=== PATIENT | female | born 1960 | race Caucasian/White ===

== ENCOUNTER 2019-12-29 16:45 | Observation (INO) | payer MEDICARE ==
--- NOTE | 2019-12-29 17:10 | ERPHSYRPT ---
- History of Present Illness Time Seen by Provider: 12/29/19 17:00 Historian: patient Exam Limitations: no limitations Patient Subjective Stated Complaint: Pt states "I have chest pain and difficulty breathing since this morning." Triage Nursing Assessment: Pt presented alert and oriented X 3,skin pwd. Pt ambulates with an upright steady gait, able to speak in clear full sentences pt tachypneic. Physician History: 59 years old female with history of tobacco abuse, COPD, diabetes mellitus, hypertension, hyperlipidemia presented in the ER with 1 week history of intermittent chest pain with activity. Patient described this as a dull aching to sharp in nature, substernal with no radiation, moderate intensity with a ctivity and better with resting currently pain is minimal. Patient also report increasing shortness of breath with activity as well. Denies any fever chills. Does have a chronic smoker cough which is not any different than usual. Patient does have history of chest pain in the past and has cardiac cath done couple of times which were negative. The last one was almost 3 years ago. Timing/Duration: week(s) (1) Activities at Onset: activity Quality: cramping Location: substernal Chest Pain Radiation: no radiation Severity of Pain-Max: moderate Severity of Pain-Current: mild Modifying Factors: Improves With: exertion Associated Symptoms: palpitations, shortness of breath, hurts to breathe, No chills, No fever Prior Chest Pain/Cardiac Workup: cardiac cath Nitro Today/Relief: no nitro taken today Aspirin Treatment Today: no aspirin today Allergies/Adverse Reactions: No Known Drug Allergies Allergy (Verified 11/09/14 09:39) Home Medications: Aspirin [Aspir 81] 81 mg PO DAILY 02/17/12 [History] Dexlansoprazole [Dexilant] 60 mg PO Q12H PRN PRN 02/17/12 [History] Metformin HCl 500 mg [Glucophage 500 MG] 850 mg PO BID 02/17/12 [History] Nitroglycerin 0.4 mg Tablet [Nitrostat 0.4 MG] 0.4 mg SL DAILY PRN PRN 02/17/12 [History] Insulin Glargine [Lantus Insulin] 7 units SQ HS 06/04/12 [History] Potassium 0 tab PO DAILY 11/09/14 [History] Pravastatin Sodium 0 mg PO DAILY 11/09/14 [History] Ranolazine [Ranexa] 1,000 mg PO BID 11/09/14 [History] Hx Tetanus, Diphtheria Vaccination/Date Given: No Hx Influenza Vaccination/Date Given: No Hx Pneumococcal Vaccination/Date Given: No Immunizations Up to Date: Yes Travel Risk - International Travel Have you traveled outside of the country in past 3 weeks: No - Coronavirus Screening Are you exhibiting any of the following symptoms?: No Close contact with a COVID-19 positive Pt in past 14-21 Days: No - Review of Systems Constitutional: No Symptoms Eyes: No Symptoms Ears, Nose, & Throat: No Symptoms Respiratory: Dyspnea, Dyspnea on Exertion (GARCIA) Cardiac: Chest Pain Abdominal/Gastrointestinal: No Symptoms Genitourinary Symptoms: No Symptoms Musculoskeletal: No Symptoms Skin: No Symptoms Neurological: No Symptoms Psychological: No Symptoms Endocrine: No Symptoms Hematologic/Lymphatic: No Symptoms Immunological/Allergic: No Symptoms - Past Medical History Pertinent Past Medical History: Yes Neurological History: No Pertinent History ENT History: No Pertinent History Cardiac History: Angina, High Cholesterol, Myocardial Infarction ([place]) Respiratory History: No Pertinent History Endocrine Medical History: Diabetes Type II Musculoskeletal History: Arthritis GI Medical History: GERD History: No Pertinent History Psycho-Social History: No Pertinent History Female Reproductive Disorders: No Pertinent History - Past Surgical History Past Surgical History: Yes Neuro Surgical History: No Pertinent History Cardiac: Cardiac Catheterization Respiratory: No Pertinent History Gastrointestinal: Cholecystectomy Genitourinary: No Pertinent History Musculoskeletal: Joint Replacement Female Surgical History: Section, Tubal Ligation Other Surgical History: r knee joint replacement - Social History Smoking Status: Current every day smoker How long have you smoked: years Exposure to second hand smoke: Yes Drug Use: none Patient Lives Alone: Yes Significant Family History: diabetes - Female History Hx Now: No - Nursing Vital Signs Nursing Vital Signs: Initial Vital Signs Temperature 98.6 F 12/29/19 16:48 Pulse Rate 84 12/29/19 16:48 Respiratory Rate 22 12/29/19 16:48 Blood Pressure 150/89 12/29/19 16:48 O2 Sat by Pulse Oximetry 97 12/29/19 16:48 Pain Scale Pain Intensity 2 - Physical Exam General Appearance: no apparent distress, alert Eye Exam: PERRL/EOMI, eyes nml inspection Ears, Nose, Throat Exam: normal ENT inspection, pharynx normal Neck Exam: normal inspection, supple, full range of motion Respiratory Exam: normal breath sounds, lungs clear Cardiovascular Exam: regular rate/rhythm, normal heart sounds Gastrointestinal/Abdomen Exam: soft, No tenderness Back Exam: normal inspection Extremity Exam: normal inspection, normal range of motion Neurologic Exam: alert, oriented x 3, cooperative Skin Exam: normal color SpO2 Interpretation: normal SpO2: 97 O2 Delivery: Room Air - Course EKG Interpreted by Me: RATE (80), Sinus Rhythm, NORMAL AXIS, Q-wave (Anteroinfer ior leads) Ordered Tests: Active Orders 24 hr Category Date Time Status Plastic Worker STAT Care 12/29/19 17:11 Active EKG-ER Only STAT Care 12/29/19 17:11 Active IV Insertion STAT Care 12/29/19 17:11 Active CHEST 1 VIEW (PORTABLE) Stat Exams 12/29/19 17:11 Taken CBC W DIFF Stat Lab 12/29/19 16:57 Completed CMP Stat Lab 12/29/19 16:57 Completed D-DIMER QUANTITATIVE Stat Lab 12/29/19 16:57 Completed NT PRO BNP Stat Lab 12/29/19 16:57 Completed TROPONIN Q3H Lab 12/29/19 16:57 Completed TROPONIN Q3H Lab 12/29/19 20:15 Ordered TROPONIN Q3H Lab 12/29/19 23:15 Ordered TROPONIN Q3H Lab 12/30/19 02:15 Ordered TROPONIN Q3H Lab 12/30/19 05:15 Ordered Respiratory Therapy Assessment DAILY RT 12/29/19 18:04 Active Transfer Order Routine Transfer 12/29/19 Ordered Medication Summary Discontinued Medications Generic Name Dose Route Start Last Admin Trade Name Freq PRN Reason Stop Dose Admin Albuterol/Ipratropium 3 ml 12/29/19 17:57 12/29/19 18:02 Duoneb 0.5-3 Mg/3 Ml Neb IH 12/29/19 17:58 3 ml STAT ONE Administration Albuterol/Ipratropium Confirm 12/29/19 18:01 Duoneb 0.5-3 Mg/3 Ml Neb Administered 12/29/19 18:02 Dose 3 ml IH .STK-MED ONE Aspirin 324 mg 12/29/19 17:11 12/29/19 17:14 Baby Aspirin 81 Mg Chew PO 12/29/19 17:12 324 mg STAT ONE Administration Aspirin Confirm 12/29/19 17:14 Baby Aspirin 81 Mg Chew Administered 12/29/19 17:15 Dose 324 mg .ROUTE .STK-MED ONE Insulin Human Regular 8 unit 12/29/19 18:35 Humulin R SQ 12/29/19 18:36 STAT ONE Morphine Sulfate 4 mg 12/29/19 17:56 12/29/19 18:02 Morphine Sulfate 4 Mg Inj IV 12/29/19 17:57 4 mg STAT ONE Administration Morphine Sulfate Confirm 12/29/19 18:01 Morphine Sulfate 4 Mg Inj Administered 12/29/19 18:02 Dose 4 mg .ROUTE .STK-MED ONE Nitroglycerin 1 gm 12/29/19 17:56 12/29/19 18:02 Nitro-Bid 2% Ud Packets TOP 12/29/19 17:57 1 gm STAT ONE Administration Nitroglycerin Confirm 12/29/19 18:01 Nitro-Bid 2% Ud Packets Administered 12/29/19 18:02 Dose 1 gm .ROUTE .STK-MED ONE Ondansetron HCl 4 mg 12/29/19 17:56 12/29/19 18:02 Zofran 4 Mg/2 Ml Vial IV 12/29/19 17:57 4 mg STAT ONE Administration Ondansetron HCl Confirm 12/29/19 18:00 Zofran 4 Mg/2 Ml Vial Administered 12/29/19 18:01 Dose 4 mg .ROUTE .STK-MED ONE Lab/Rad Data: Laboratory Result Diagrams 12/29/19 16:57 12/29/19 16:57 Laboratory Results 12/29/19 12/29/19 12/29/19 Range/Units 16:57 16:57 16:57 WBC (4.0-10.5) K/mm3 RBC (4.1-5.4) M/mm3 Hgb (12.0-16.0) gm/dl Hct (35-47) % MCV (78-100) fl MCH (26-32) pg MCHC (32-36) g/dl RDW (11.5-14.0) % Plt Count (150-450) K/mm3 MPV (7.5-11.0) fl Gran % (36.0-66.0) % Eos # (Auto) (0-0.5) Absolute Lymphs (auto) (1.0-4.6) Absolute Monos (auto) (0.0-1.3) Lymphocytes % (24.0-44.0) % Monocytes % (0.0-12.0) % Eosinophils % (0.00-5.0) % Basophils % (0.0-0.4) % Absolute Granulocytes (1.4-6.9) Basophils # (0-0.4) D-Dimer 393 (215-500) ng/mL Sodium 137 (137-145) mmol/L Potassium 4.5 (3.5-5.1) mmol/L Chloride 107 (98-107) mmol/L Carbon Dioxide 21 L (22-30) mmol/L Anion Gap 13.4 (5-15) MEQ/L BUN 18 H (7-17) mg/dL Creatinine 0.71 (0.52-1.04) mg/dL Estimated GFR > 60.0 ML/MIN Glucose 374 H (74-106) mg/dL Calcium 9.2 (8.4-10.2) mg/dL Total Bilirubin 0.40 (0.2-1.3) mg/dL AST 21 (14-36) U/L ALT 21 (0-35) U/L Alkaline Phosphatase 95 (38-126) U/L Troponin I < 0.012 (0.000-0.034) ng/mL NT-Pro-B Natriuret Pep 72.8 (0-900) pg/mL Serum Total Protein 7.4 (6.3-8.2) g/dL Albumin 4.1 (3.5-5.0) g/dL 12/29/19 Range/Units 16:57 WBC 6.6 (4.0-10.5) K/mm3 RBC 4.95 (4.1-5.4) M/mm3 Hgb 14.7 (12.0-16.0) gm/dl Hct 43.9 (35-47) % MCV 88.7 (78-100) fl MCH 29.7 (26-32) pg MCHC 33.5 (32-36) g/dl RDW 13.1 (11.5-14.0) % Plt Count 201 (150-450) K/mm3 MPV 12.1 H (7.5-11.0) fl Gran % 52.5 (36.0-66.0) % Eos # (Auto) 0.20 (0-0.5) Absolute Lymphs (auto) 2.54 (1.0-4.6) Absolute Monos (auto) 0.38 (0.0-1.3) Lymphocytes % 38.5 (24.0-44.0) % Monocytes % 5.8 (0.0-12.0) % Eosinophils % 3.0 (0.00-5.0) % Basophils % 0.2 (0.0-0.4) % Absolute Granulocytes 3.46 (1.4-6.9) Basophils # 0.01 (0-0.4) D-Dimer (215-500) ng/mL Sodium (137-145) mmol/L Potassium (3.5-5.1) mmol/L Chloride (98-107) mmol/L Carbon Dioxide (22-30) mmol/L Anion Gap (5-15) MEQ/L BUN (7-17) mg/dL Creatinine (0.52-1.04) mg/dL Estimated GFR ML/MIN Glucose (74-106) mg/dL Calcium (8.4-10.2) mg/dL Total Bilirubin (0.2-1.3) mg/dL AST (14-36) U/L ALT (0-35) U/L Alkaline Phosphatase (38-126) U/L Troponin I (0.000-0.034) ng/mL NT-Pro-B Natriuret Pep (0-900) pg/mL Serum Total Protein (6.3-8.2) g/dL Albumin (3.5-5.0) g/dL - Progress Progress: improved, re-examined Air Movement: good Progress Note: 12/29/19 18:02 59 years old is evaluated for chest pain with exertion for 1 week. EKG showed normal sinus rhythm with old Q waves in anteroinferior leads but no acute ST elevations. Initial troponins and D-dimers are negative. Chest x-ray did not show any acute cardiopulmonary findings. She is given aspirin and Nitropaste along with morphine and DuoNeb. On reevaluation her symptoms are better. Patient has multiple risk factor with heart score 4. Discussed with Dr. Ramirez and patient is being admitted for observation for rule out. Blood Culture(s) Obtained: No Antibiotics given: No Discussed with : Vee Counseled pt/family regarding: lab results, diagnosis, rad results - Departure Departure Disposition: Observation Clinical Impression: Chest pain, rule out acute myocardial infarction, Hyperglycemia Condition: Stable Critical Care Time: No Referrals: MEKHI OLSEN [Primary Care Provider] -
[2019-12-29] MEDS ORDERED: BABY ASPIRIN 81 MG CHEW PO ONE (17:11)
[2019-12-29] MEDS ORDERED: BABY ASPIRIN 81 MG CHEW ONE (17:14)
[2019-12-29 17:23] LABS: Absolute Neutrophil Ct (ANC) 3.46 (1.4-6.9); BASOPHIL % 0.2 % (0.0-0.4); Basophil (Absolute #) 0.01 (0-0.4); Hematocrit 43.9 % (35-47); Hemoglobin 14.7 gm/dl (12.0-16.0); Lymphocyte (Absolute #) 2.54 (1.0-4.6); Lymphocytes % 38.5 % (24.0-44.0); Mean Cell Volume 88.7 fl (78-100); Mean Corpuscular Hemoglobin 29.7 pg (26-32); Mean Corpuscular Hgb Concent. 33.5 g/dl (32-36); Mean Platelet Volume 12.1 fl (7.5-11.0); Monocyte (Absolute #) 0.38 (0.0-1.3); Monocytes % 5.8 % (0.0-12.0); Neutrophil % 52.5 % (36.0-66.0); Platelet Count 201 K/mm3 (150-450); Red Blood Count 4.95 M/mm3 (4.1-5.4); Red Cell Distribution Width 13.1 % (11.5-14.0); White Blood Count 6.6 K/mm3 (4.0-10.5)
[2019-12-29 17:44] LABS: ALBUMIN 4.1 g/dL (3.5-5.0); ALKALINE PHOSPHATASE 95 U/L (38-126); ANION GAP 13.4 MEQ/L (5-15); BLOOD UREA NITROGEN 18 mg/dL (7-17); CHLORIDE 107 mmol/L (98-107); Calcium 9.2 mg/dL (8.4-10.2); Carbon Dioxide 21 mmol/L (22-30); Creatinine 1 0.71 mg/dL (0.52-1.04); Glucose 374 mg/dL (74-106); NT PRO BNP 72.8 pg/mL (0-900); Potassium 4.5 mmol/L (3.5-5.1); SGOT/AST 21 U/L (14-36); SGPT/ALT 21 U/L (0-35); SODIUM 137 mmol/L (137-145); Total Protein 7.4 g/dL (6.3-8.2)
[2019-12-29] MEDS ORDERED: NITRO-BID 2% UD PACKETS TOP ONE (17:56)
[2019-12-29] MEDS ORDERED: MORPHINE SULFATE 4 MG INJ IV ONE (17:56)
[2019-12-29] MEDS ORDERED: Zofran 4 MG/2 ML VIAL IV ONE (17:56)
[2019-12-29] MEDS ORDERED: DUONEB 0.5-3 MG/3 ml Neb IH ONE ×2 (17:57→18:01)
[2019-12-29] MEDS ORDERED: Zofran 4 MG/2 ML VIAL ONE (18:00)
[2019-12-29] MEDS ORDERED: MORPHINE SULFATE 4 MG INJ ONE (18:01)
[2019-12-29] MEDS ORDERED: NITRO-BID 2% UD PACKETS ONE (18:01)
[2019-12-29] MEDS ORDERED: HUMULIN R SQ ONE (18:35)
[2019-12-29] MEDS ORDERED: HUMULIN R ONE (18:48)
[2019-12-29] MEDS ORDERED: MORPHINE SULFATE 4 MG INJ IV PRN (19:00)
[2019-12-29] MEDS ORDERED: TYLENOL 325 MG PO PRN (19:00)
[2019-12-29] MEDS ORDERED: HUMALOG SQ PRN (19:00)
[2019-12-29] MEDS ORDERED: Zofran 4 MG/2 ML VIAL IV PRN (19:00)
[2019-12-29] MEDS ORDERED: DUONEB 0.5-3 MG/3 ml Neb IH PRN (19:00)
[2019-12-29 19:21] VITALS: BP 137/64; PULSE 70; O2SAT 95
[2019-12-30] MEDS ORDERED: PROTONIX 40 MG IV IV SCH (10:00)
[2019-12-30] MEDS ORDERED: ENOXAPARIN SODIUM SQ SCH (10:00)
--- NOTE | 2019-12-30 10:59 | XRAY ---
Exam: AP upright portable chest film from 12/29/2019. Comparison: AP portable chest film from 03/14/2013. Indication: 59-year-old female with chest pain, smoker, no history of prior lung surgery. Findings: The heart size and contour are normal. The yanira and mediastinal structures appear unremarkable. EKG leads are seen in place. There is average inflation of the lungs. No air space infiltrates, pulmonary vascular congestion, pneumothorax, or pleural fluid is seen. Minimal elevation/eventration of the right hemidiaphragm is seen which I believe is unchanged from 2012. No acute osseous process is noted. Mild osteophyte formation is seen within the lower thoracic spine. Impression: 1. No acute cardiopulmonary disease is seen, no significant change from 03/14/2013.
== END 2019-12-29 21:10 | disposition left against medical advice (07) ==
LOC: ED 16:45 → MED SURG 18:54
PROVIDERS: ADMIT Family Medicine; ATTEND Family Medicine
DX: R07.9 Chest pain, unspecified (principal); E11.9 Type 2 diabetes mellitus without complications; I10 Essential (primary) hypertension; E78.5 Hyperlipidemia, unspecified; J44.9 Chronic obstructive pulmonary disease, unspecified; Z79.899 Other long term (current) drug therapy
CPT/HCPCS: 36000; 36415; 71045; 80053; 83880; 84484; 85025; 85379; 93005; 93041; 93268; 94640; 94760; 96372; 96374; 96375; 99285; G0378; J1815; J2270; J2405; A9270-GY

== ENCOUNTER 2020-03-20 00:55 | Emergency (ER) | payer MEDICARE ==
--- NOTE | 2020-03-20 00:57 | ERPHSYRPT ---
- History of Present Illness Time Seen by Provider: 03/20/20 00:57 Source: patient Exam Limitations: no limitations Physician History: 59-year-old white female with a history of hypertension and insulin-dependent diabetes who smokes approximately three quarters of a pack of cigarettes a day and has smoked for 32 years and presents with relatively sudden onset of shortn ess of breath when lying flat to go to sleep. Patient does not use any nebulizer treatments or inhalers. She is not on any home oxygen therapy. Patient denies chest pain. She has not had a cough, fever, abdominal pain, nausea vomiting or diarrhea. Timing/Duration: today Activities at Onset: sleep Severity of Dyspnea-Max: moderate (When lying flat) Severity of Dyspnea-Current: mild Possible Cause: no prior episodes Modifying Factors: Improves With: lying down, other (Proved with sitting up) Associated Symptoms: No cough, No wheezing, No calf pain, No heaviness, No productive cough Allergies/Adverse Reactions: No Known Drug Allergies Allergy (Verified 03/20/20 01:10) Home Medications: Dexlansoprazole [Dexilant] 60 mg PO Q12H PRN PRN 02/17/12 [History] Metformin HCl 500 mg [Glucophage 500 MG] 1,000 mg PO BID 02/17/12 [History] Nitroglycerin 0.4 mg Tablet [Nitrostat 0.4 MG] 0.4 mg SL DAILY PRN PRN 02/17/12 [History] Potassium 1 tab PO DAILY 11/09/14 [History] Pravastatin Sodium 40 mg PO HS 11/09/14 [History] Ranolazine [Ranexa] 1,000 mg PO BID 11/09/14 [History] Furosemide 40 mg PO DAILY 12/29/19 [History] Aspirin EC 81 mg [Ecotrin 81 mg] 81 mg PO DAILY 03/20/20 [History] Carvedilol 3.125 mg [Coreg 3.125 MG] 3.125 mg PO 03/20/20 [History] Empagliflozin [Jardiance] 10 mg PO DAILY 03/20/20 [History] Gabapentin 300 mg PO TID 03/20/20 [History] Insulin Detemir [Levemir] 70 unit SQ HS 03/20/20 [History] Hx Tetanus, Diphtheria Vaccination/Date Given: No Hx Influenza Vaccination/Date Given: No Hx Pneumococcal Vaccination/Date Given: No Travel Risk - International Travel Have you traveled outside of the country in past 3 weeks: No - Coronavirus Screening Are you exhibiting any of the following symptoms?: No Close contact with a COVID-19 positive Pt in past 14-21 Days: No - Review of Systems Constitutional: No Symptoms Eyes: No Symptoms Ears, Nose, & Throat: No Symptoms Respiratory: Dyspnea Cardiac: No Symptoms Abdominal/Gastrointestinal: No Symptoms Genitourinary Symptoms: No Symptoms Musculoskeletal: No Symptoms Skin: No Symptoms Neurological: No Symptoms Psychological: No Symptoms Endocrine: No Symptoms Hematologic/Lymphatic: No Symptoms Immunological/Allergic: No Symptoms All Other Systems: Reviewed and Negative - Past Medical History Pertinent Past Medical History: Yes Neurological History: No Pertinent History ENT History: No Pertinent History Cardiac History: Angina, High Cholesterol, Myocardial Infarction ([place]) Respiratory History: No Pertinent History Endocrine Medical History: Diabetes Type II Musculoskeletal History: Arthritis GI Medical History: GERD History: No Pertinent History Psycho-Social History: No Pertinent History Female Reproductive Disorders: No Pertinent History - Past Surgical History Past Surgical History: Yes Neuro Surgical History: No Pertinent History Cardiac: Cardiac Catheterization Respiratory: No Pertinent History Gastrointestinal: Cholecystectomy Genitourinary: No Pertinent History Musculoskeletal: Joint Replacement Female Surgical History: Section, Tubal Ligation Other Surgical History: r knee joint replacement - Social History Smoking Status: Current every day smoker How long have you smoked: years Exposure to second hand smoke: Yes Drug Use: none Patient Lives Alone: Yes Significant Family History: diabetes - Nursing Vital Signs Nursing Vital Signs: Initial Vital Signs Temperature 97.5 F 03/20/20 00:56 Pulse Rate 75 03/20/20 00:56 Respiratory Rate 18 03/20/20 00:56 Blood Pressure 157/80 03/20/20 00:56 O2 Sat by Pulse Oximetry 99 03/20/20 00:56 Pain Scale Pain Intensity 0 - Physical Exam General Appearance: no apparent distress, alert, anxiety Eye Exam: PERRL/EOMI, eyes nml inspection Ears, Nose, Throat Exam: hearing grossly normal, normal ENT inspection, normal pharynx Neck Exam: normal inspection, non-tender, supple, full range of motion Respiratory Exam: normal breath sounds, lungs clear, airway intact, No chest tenderness, No respiratory distress Cardiovascular/Chest Exam: normal heart sounds, regular rate/rhythm, murmur Abdominal/Gastrointestinal Exam: soft, normal bowel sounds, No tenderness Rectal Exam: not done Extremity Exam: non-tender, normal range of motion, normal inspection Neurologic Exam: alert, oriented x 3, cooperative, lockstitcher II-XII nml as tested, normal mood/affect, nml cerebellar function, nml station & gait, sensation nml Skin Exam: normal color, warm, dry Lymphatic Exam: No adenopathy SpO2 Interpretation: normal O2 Delivery: Room Air - Course Nursing assessment & vital signs reviewed: Yes EKG Interpreted by Me: RATE (71), Sinus Rhythm, NORMAL AXIS, NORMAL INTERVALS, NORMAL QRS, Other (Comparison EKG is dated 12/29/2019. There are no acute ischemic changes on either EKG.) Ordered Tests: Active Orders 24 hr Category Date Time Status Biomedical Equipment Tech STAT Care 03/20/20 01:16 Active EKG-ER Only STAT Care 03/20/20 01:15 Active IV Insertion STAT Care 03/20/20 01:15 Active Pulse Oximetry (ED) STAT Care 03/20/20 01:15 Active CHEST 1 VIEW (PORTABLE) Stat Exams 03/20/20 01:16 Taken CBC W DIFF Stat Lab 03/20/20 01:25 Completed CMP Stat Lab 03/20/20 01:25 Completed D-DIMER QUANTITATIVE Stat Lab 03/20/20 01:25 Completed Lactic Acid Stat Lab 03/20/20 01:40 Completed NT PRO BNP Stat Lab 03/20/20 01:25 Completed PROTIME WITH INR Stat Lab 03/20/20 01:25 Completed TROPONIN Q3H Lab 03/20/20 01:25 Completed TROPONIN Q3H Lab 03/20/20 04:15 Completed TROPONIN Q3H Lab 03/20/20 07:30 Ordered TROPONIN Q3H Lab 03/20/20 10:30 Ordered TROPONIN Q3H Lab 03/20/20 13:30 Ordered Respiratory Therapy Assessment DAILY RT 03/20/20 03:53 Completed Medication Summary Discontinued Medications Generic Name Dose Route Start Last Admin Trade Name Freq PRN Reason Stop Dose Admin Albuterol/Ipratropium 3 ml 03/20/20 03:45 03/20/20 03:50 Duoneb 0.5-3 Mg/3 Ml Neb IH 03/20/20 03:46 3 ml STAT ONE Administration Albuterol/Ipratropium Confirm 03/20/20 03:48 Duoneb 0.5-3 Mg/3 Ml Neb Administered 03/20/20 03:49 Dose 3 ml IH .STK-MED ONE Methylprednisolone Sodium Succinate 125 mg 03/20/20 01:34 03/20/20 01:50 Solu-Medrol 125 Mg IV 03/20/20 01:35 125 mg STAT ONE Administration Methylprednisolone Sodium Succinate Confirm 03/20/20 01:40 Solu-Medrol 125 Mg Administered 03/20/20 01:41 Dose 125 mg .ROUTE .STK-MED ONE Lab/Rad Data: Laboratory Result Diagrams 03/20/20 01:25 03/20/20 01:25 Laboratory Results 03/20/20 03/20/20 03/20/20 Range/Units 04:15 01:40 01:25 WBC (4.0-10.5) K/mm3 RBC (4.1-5.4) M/mm3 Hgb (12.0-16.0) gm/dl Hct (35-47) % MCV (78-100) fl MCH (26-32) pg MCHC (32-36) g/dl RDW (11.5-14.0) % Plt Count (150-450) K/mm3 MPV (7.5-11.0) fl Gran % (36.0-66.0) % Eos # (Auto) (0-0.5) Absolute Lymphs (auto) (1.0-4.6) Absolute Monos (auto) (0.0-1.3) Lymphocytes % (24.0-44.0) % Monocytes % (0.0-12.0) % Eosinophils % (0.00-5.0) % Basophils % (0.0-0.4) % Absolute Granulocytes (1.4-6.9) Basophils # (0-0.4) PT (9.95-12.35) SECONDS INR (0.8-3.0) D-Dimer (215-500) ng/mL Sodium (137-145) mmol/L Potassium (3.5-5.1) mmol/L Chloride (98-107) mmol/L Carbon Dioxide (22-30) mmol/L Anion Gap (5-15) MEQ/L BUN (7-17) mg/dL Creatinine (0.52-1.04) mg/dL Estimated GFR ML/MIN Glucose (74-106) mg/dL Lactic Acid 2.0 (0.4-2.0) Calcium (8.4-10.2) mg/dL Total Bilirubin (0.2-1.3) mg/dL AST (14-36) U/L ALT (0-35) U/L Alkaline Phosphatase (38-126) U/L Troponin I < 0.012 < 0.012 (0.000-0.034) ng/mL NT-Pro-B Natriuret Pep (0-900) pg/mL Serum Total Protein (6.3-8.2) g/dL Albumin (3.5-5.0) g/dL 03/20/20 03/20/20 03/20/20 Range/Units 01:25 01:25 01:25 WBC 8.1 (4.0-10.5) K/mm3 RBC 4.99 (4.1-5.4) M/mm3 Hgb 15.1 (12.0-16.0) gm/dl Hct 46.4 (35-47) % MCV 93.0 (78-100) fl MCH 30.3 (26-32) pg MCHC 32.5 (32-36) g/dl RDW 13.7 (11.5-14.0) % Plt Count 210 (150-450) K/mm3 MPV 11.9 H (7.5-11.0) fl Gran % 53.4 (36.0-66.0) % Eos # (Auto) 0.24 (0-0.5) Absolute Lymphs (auto) 2.97 (1.0-4.6) Absolute Monos (auto) 0.53 (0.0-1.3) Lymphocytes % 36.8 (24.0-44.0) % Monocytes % 6.6 (0.0-12.0) % Eosinophils % 3.0 (0.00-5.0) % Basophils % 0.2 (0.0-0.4) % Absolute Granulocytes 4.30 (1.4-6.9) Basophils # 0.02 (0-0.4) PT 10.0 (9.95-12.35) SECONDS INR 0.89 (0.8-3.0) D-Dimer 297 (215-500) ng/mL Sodium 139 (137-145) mmol/L Potassium 3.9 (3.5-5.1) mmol/L Chloride 104 (98-107) mmol/L Carbon Dioxide 28 (22-30) mmol/L Anion Gap 1.5 L (5-15) MEQ/L BUN 21 H (7-17) mg/dL Creatinine 0.91 (0.52-1.04) mg/dL Estimated GFR > 60.0 ML/MIN Glucose 278 H (74-106) mg/dL Lactic Acid (0.4-2.0) Calcium 8.9 (8.4-10.2) mg/dL Total Bilirubin 0.30 (0.2-1.3) mg/dL AST 24 (14-36) U/L ALT 22 (0-35) U/L Alkaline Phosphatase 86 (38-126) U/L Troponin I (0.000-0.034) ng/mL NT-Pro-B Natriuret Pep 37.8 (0-900) pg/mL Serum Total Protein 7.3 (6.3-8.2) g/dL Albumin 4.4 (3.5-5.0) g/dL - Progress Progress: improved, re-examined Air Movement: good Progress Note: 03/20/20 01:34 Chest x-ray shows no acute cardiopulmonary disease process. 03/20/20 04:56 Patient denies chest pain. Patient states she is breathing much better than prior to arrival. Blood Culture(s) Obtained: No Antibiotics given: No Counseled pt/family regarding: lab results, diagnosis - Departure Departure Disposition: Home Clinical Impression: Shortness of breath, COPD (chronic obstructive pulmonary disease) Condition: Stable Critical Care Time: No Referrals: MEKHI OLSEN [Primary Care Provider] - Instructions: Chronic Obstructive Pulmonary Disease Additional Instructions: Monitor your blood sugar closely while taking the steroids. Treat your elevated blood sugar as you would without steroid use. Call your primary care doctor on 03/22/2020 for further management and possible referral to a director of accounting. Stop smoking Prescriptions: Prednisone 10 mg [Deltasone 10 mg] 10 mg PO TID #12 tablet
[2020-03-20 01:34] LABS: BASOPHIL % 0.2 % (0.0-0.4); Basophil (Absolute #) 0.02 (0-0.4); Eosinophil (Absolute #) 0.24 (0-0.5); Hematocrit 46.4 % (35-47); Hemoglobin 15.1 gm/dl (12.0-16.0); Lymphocyte (Absolute #) 2.97 (1.0-4.6); Lymphocytes % 36.8 % (24.0-44.0); Mean Corpuscular Hemoglobin 30.3 pg (26-32); Mean Corpuscular Hgb Concent. 32.5 g/dl (32-36); Mean Platelet Volume 11.9 fl (7.5-11.0); Monocyte (Absolute #) 0.53 (0.0-1.3); Monocytes % 6.6 % (0.0-12.0); Neutrophil % 53.4 % (36.0-66.0); Platelet Count 210 K/mm3 (150-450); Red Blood Count 4.99 M/mm3 (4.1-5.4); Red Cell Distribution Width 13.7 % (11.5-14.0); White Blood Count 8.1 K/mm3 (4.0-10.5)
[2020-03-20] MEDS ORDERED: solu-MEDROL 125 MG IV ONE (01:34)
[2020-03-20 01:40] LABS: INR 0.89 (0.8-3.0)
[2020-03-20] MEDS ORDERED: solu-MEDROL 125 MG ONE (01:40)
[2020-03-20 01:56] LABS: BLOOD UREA NITROGEN 21 mg/dL (7-17); Glucose 278 mg/dL (74-106)
[2020-03-20 01:57] LABS: ALBUMIN 4.4 g/dL (3.5-5.0); ALKALINE PHOSPHATASE 86 U/L (38-126); CHLORIDE 104 mmol/L (98-107); Calcium 8.9 mg/dL (8.4-10.2); Carbon Dioxide 28 mmol/L (22-30); Creatinine 1 0.91 mg/dL (0.52-1.04); EST GLOMERULAR FILTRATION RATE > 60.0 ML/MIN; Potassium 3.9 mmol/L (3.5-5.1); SGOT/AST 24 U/L (14-36); SGPT/ALT 22 U/L (0-35); SODIUM 139 mmol/L (137-145); Total Protein 7.3 g/dL (6.3-8.2)
[2020-03-20 01:58] LABS: ANION GAP 1.5 MEQ/L (5-15); NT PRO BNP 37.8 pg/mL (0-900)
[2020-03-20] MEDS ORDERED: DUONEB 0.5-3 MG/3 ml Neb IH ONE ×2 (03:45→03:48)
[2020-03-20 05:07] VITALS: BP 136/85; PULSE 64; O2SAT 97
--- NOTE | 2020-03-20 05:49 | XRAY ---
Indication: Short of breath. Comparison: December 29, 2019. Portable chest again demonstrates normal heart and lungs with incidental focal eventration right hemidiaphragm. Bony thorax intact again with mild degenerative changes. No new/acute findings.
== END 2020-03-20 05:16 | disposition home or self-care (01) ==
LOC: ED 00:55
DX: R06.02 Shortness of breath (principal); J44.1 Chronic obstructive pulmonary disease with (acute) exacerbation; I10 Essential (primary) hypertension; E11.9 Type 2 diabetes mellitus without complications; Z79.4 Long term (current) use of insulin; Z72.0 Tobacco use; Z79.899 Other long term (current) drug therapy; I25.2 Old myocardial infarction
CPT/HCPCS: 36000; 36415; 71045; 80053; 83605; 83880; 84484; 85025; 85379; 85610; 93005; 93041; 94640; 94760; 96374; 99284; G0277; J2930; A9270-GY

== ENCOUNTER 2020-04-30 02:32 | Emergency (ER) | payer MEDICARE ==
--- NOTE | 2020-04-30 03:33 | ERPHSYRPT ---
- History of Present Illness Time Seen by Provider: 04/30/20 02:52 Source: patient Exam Limitations: no limitations Patient Subjective Stated Complaint: pt states after going for a walk today , she had pain in her lt knee. denies fall or any other injury to knee Triage Nursing Assessment: pt alert and oriented, answers questions approp. pt back per wheelchair, ambulates with walker to stretcher with limping gait. skin pink warm and dry. respirations nonlabored with lungs cta. mild swelling and warmth noted to lt knee. pedal pulse and cap refill to lt lower ext wnl. Physician History: This is a 60-year-old diabetic white female who has had bilateral knee replacements in the past and presents with left knee pain. Patient went for her usual walk. After she returned home she noticed pain and swelling in the left knee. There is associated warmth but no redness present. Patient took tramadol but this did not help much. Patient states she did not fall or have any injury during her walk. Patient sees her orthopedic surgeon on 05/11/2020 for a 5-year follow-up. Patient drove herself to the emergency department Method of Injury: unknown Occurred: this afternoon Quality: aching Severity of Pain-Max: moderate Severity of Pain-Current: moderate Lower Extremities Pain: knee: left Modifying Factors: Improves With: movement Associated Symptoms: other (Hurts to bear weight) Allergies/Adverse Reactions: No Known Drug Allergies Allergy (Verified 04/30/20 02:51) Home Medications: Dexlansoprazole [Dexilant] 60 mg PO Q12H PRN PRN 02/17/12 [History] Metformin HCl 500 mg [Glucophage 500 MG] 1,000 mg PO BID 02/17/12 [History] Nitroglycerin 0.4 mg Tablet [Nitrostat 0.4 MG] 0.4 mg SL DAILY PRN PRN 02/17/12 [History] Potassium 1 tab PO DAILY 11/09/14 [History] Pravastatin Sodium 40 mg PO HS 11/09/14 [History] Ranolazine [Ranexa] 1,000 mg PO BID 11/09/14 [History] Furosemide 40 mg PO DAILY 12/29/19 [History] Aspirin EC 81 mg [Ecotrin 81 mg] 81 mg PO DAILY 03/20/20 [History] Carvedilol 3.125 mg [Coreg 3.125 MG] 6.25 mg PO BID 03/20/20 [History] Gabapentin 600 mg PO TID 03/20/20 [History] Insulin Detemir [Levemir] 70 unit SQ HS 03/20/20 [History] Alprazolam [Xanax] 0.5 mg PO TID PRN PRN 04/30/20 [History] Empagliflozin [Jardiance] 10 mg PO DAILY 04/30/20 [History] Tramadol HCl 50 mg [Ultram 50 mg] 50 mg PO Q6-8HPRN PRN 04/30/20 [History] Hx Tetanus, Diphtheria Vaccination/Date Given: No Hx Influenza Vaccination/Date Given: No Hx Pneumococcal Vaccination/Date Given: No Travel Risk - International Travel Have you traveled outside of the country in past 3 weeks: No - Coronavirus Screening Are you exhibiting any of the following symptoms?: No Close contact with a COVID-19 positive Pt in past 14-21 Days: No - Review of Systems Constitutional: No Symptoms Eyes: No Symptoms Ears, Nose, & Throat: No Symptoms Respiratory: No Symptoms Cardiac: No Symptoms Abdominal/Gastrointestinal: No Symptoms Genitourinary Symptoms: No Symptoms Musculoskeletal: Joint Pain (Anterior knee left), Joint Swelling (Anterior knee left) Neurological: No Symptoms Psychological: No Symptoms Endocrine: No Symptoms Hematologic/Lymphatic: No Symptoms Immunological/Allergic: No Symptoms All Other Systems: Reviewed and Negative - Past Medical History Pertinent Past Medical History: Yes Neurological History: No Pertinent History ENT History: No Pertinent History Cardiac History: Angina, High Cholesterol, Myocardial Infarction (SC) Respiratory History: No Pertinent History Endocrine Medical History: Diabetes Type II Musculoskeletal History: Arthritis GI Medical History: GERD History: No Pertinent History Psycho-Social History: No Pertinent History Female Reproductive Disorders: No Pertinent History - Past Surgical History Past Surgical History: Yes Neuro Surgical History: No Pertinent History Cardiac: Cardiac Catheterization Respiratory: No Pertinent History Gastrointestinal: Cholecystectomy Genitourinary: No Pertinent History Musculoskeletal: Joint Replacement, Orthopedic Surgery Female Surgical History: Section, Tubal Ligation Other Surgical History: bilat knee joint replacement, fatty tumors removed x2 - Social History Smoking Status: Current every day smoker How long have you smoked: years Exposure to second hand smoke: Yes Drug Use: none Patient Lives Alone: Yes Significant Family History: diabetes - Nursing Vital Signs Nursing Vital Signs: Initial Vital Signs Temperature 98.2 F 04/30/20 02:39 Pulse Rate 88 04/30/20 02:39 Respiratory Rate 18 04/30/20 02:39 Blood Pressure 127/63 04/30/20 02:39 O2 Sat by Pulse Oximetry 97 04/30/20 02:39 Pain Scale Pain Intensity 9 - Physical Exam General Appearance: no apparent distress, alert, anxiety, obese Eyes, Ears, Nose, Throat Exam: normal ENT inspection, moist mucous membranes Neck Exam: normal inspection, non-tender, supple, full range of motion Cardiovascular/Respiratory Exam: chest non-tender, no respiratory distress Gastrointestinal/Abdominal Exam: non-tender Back Exam: normal inspection, normal range of motion, No CVA tenderness, No vertebral tenderness Hips Exam: bilateral: non-tender, normal inspection, normal range of motion, no evidence of injury Legs Exam: bilateral leg: non-tender, normal inspection, normal range of motion, no evidence of injury Knees Exam: right knee: non-tender, normal inspection, normal range of motion, no evidence of injury, left knee: soft tissue tenderness (Anterior knee), swelling (Anterior knee) Ankle Exam: bilateral ankle: non-tender, normal inspection, normal range of motion, no evidence of injury Foot Exam: bilateral foot: non-tender, normal inspection, normal range of motion, no evidence of injury Neuro/Tendon Exam: normal sensation, normal motor functions, normal tendon functions Mental Status Exam: alert, oriented x 3, cooperative Skin Exam: normal color, warm, dry SpO2 Interpretation: normal SpO2: 97 O2 Delivery: Room Air - Course Nursing assessment & vital signs reviewed: Yes Ordered Tests: Active Orders 24 hr Category Date Time Status KNEE (1 OR 2 VIEW) Stat Exams 04/30/20 03:15 Taken - Progress Progress: pain not gone completely, re-examined Progress Note: 04/30/20 03:34 X-ray left knee shows no acute fracture or dislocation. The replacement hardware is in the appropriate position. Counseled pt/family regarding: diagnosis, need for follow-up, rad results - Departure Departure Disposition: Home Clinical Impression: Left anterior knee pain, Swelling of left knee joint Condition: Stable Critical Care Time: No Referrals: MEKHI OLSEN [Primary Care Provider] - [facility]-Ortho [phone] Additional Instructions: Ice pack to left anterior knee 3-4 times a day. Follow-up with the [facility] orthopedic clinic today between the hours of 8 AM and 10 AM. Wear the Srini bandage for comfort. Take your medication as prescribed. Hold on the tramadol medication until after you complete your Percocet medication. Prescriptions: Oxycodone HCl/Acetaminophen [Percocet 5-325 mg Tablet] 1 each PO Q8H PRN PRN #6 tablet MDD 3 PRN Reason: Pain Prednisone 10 mg [Deltasone 10 mg] 10 mg PO TID #8 tablet
[2020-04-30] MEDS ORDERED: PERCOCET TABLET 5/325MG ONE (03:39)
[2020-04-30] MEDS ORDERED: DELTASONE 20 MG ONE (03:39)
[2020-04-30] MEDS ORDERED: PERCOCET TABLET 5/325MG PO STA (03:41)
[2020-04-30] MEDS ORDERED: DELTASONE 20 MG PO ONE (03:42)
[2020-04-30] MEDS ORDERED: KEFLEX 500 MG PO ONE (03:59)
[2020-04-30] MEDS ORDERED: KEFLEX 500 MG ONE (04:05)
[2020-04-30 04:28] VITALS: BP 125/59; PULSE 87; O2SAT 96
--- NOTE | 2020-04-30 08:58 | XRAY ---
Indication: Pain and edema after walking. Comparison: None AP/crosstable lateral left knee demonstrates total knee arthroplasty with intact articulation/prosthesis and small nonspecific effusion. No other bony, articular, or soft tissue abnormalities.
== END 2020-04-30 04:25 | disposition home or self-care (01) ==
LOC: ED 02:32
DX: M25.562 Pain in left knee (principal); E11.9 Type 2 diabetes mellitus without complications; E78.00 Pure hypercholesterolemia, unspecified; Z96.653 Presence of artificial knee joint, bilateral
CPT/HCPCS: 73560; 99283; A9270-GY

== ENCOUNTER 2022-10-09 10:21 | Day surgery (SDC) | payer MEDICARE ==
--- NOTE | 2022-10-09 09:46 | HP ---
DATE OF SURGERY: 10/09/2022 HISTORY OF PRESENT ILLNESS: The patient is a 62-year-old with some history of thyroid nodules in the past. No signs or symptoms hypothyroidism. She has some dysphagia upper esophagus worse recently. No prior dilatation in the past. It happens mostly with solids, occasionally liquid at times. PAST MEDICAL HISTORY: Dysphagia, reflux, depression, hyperlipidemia, diabetes mellitus type II, neuropathy, obesity, restless leg syndrome, sleep apnea, anxiety. PAST SURGICAL HISTORY: Knee replaced. Cholecystectomy. section. Lipoma. MEDICATIONS: Omeprazole, nitroglycerin, Alprazolam, tramadol, Vascepa, gabapentin, fluconazole, Ranexa, Ozempic, Levemir, pravastatin, Jardiance. ALLERGIES: NKDA. FAMILY HISTORY: Breast cancer, lung cancer, history of stroke. SOCIAL HISTORY: Smoker. No alcohol abuse. REVIEW OF SYSTEMS: Fourteen systems reviewed. No chest pain or palpitations. Other systems negative or noncontributory as above and per preadmission questionnaire. PHYSICAL EXAMINATION: GENERAL: No acute distress. HEENT: Sclerae nonicteric. EOMI. Oral mucous membranes moist. NECK: No JVD. CHEST: Equal excursion, nonlabored breathing. CVS: Regular rate and rhythm. ABDOMEN: Soft. No peritoneal signs. EXTREMITIES: No edema or cyanosis. NEURO: Alert, oriented, moving extremities symmetrically. RECTAL: Deferred timed to endoscopy exam. PSYCH: Appropriate mood and affect. SKIN: Dry. IMPRESSION: Dysphagia upper esophagus. I feel the patient would benefit from EGD possible biopsy possible dilatation. She was shown the risk sheet explained the procedure in detail including but not limited to bleeding or infection, risk of bowel injury or perforation, risk of missed or nondiagnosis or incomplete exam, possibly requiring barium swallow, other studies or procedures. Possibility dilatation does not improve her dysphagia might need esophagogram or even consideration of different type of dilator, possibility that she has functional or neurologic problem rather than a narrowing and dilatation may not improve her swallowing. She understands that if the dilatation is accomplished and does improve her swallowing might need to be repeated again down the road. She understands and agrees to the planned procedure. Will proceed with EGD possible biopsy as an outpatient and possible dilatation. Will follow up ultrasound regarding history of thyroid nodule in the past.
[2022-10-09] MEDS ORDERED: Lactated Ringers 1,000 ML IV SCH (11:30)
[2022-10-09] MEDS ORDERED: Versed 2 MG/2 ML Injection ONE (12:27)
[2022-10-09] MEDS ORDERED: DIPRIVAN 200 MG/20 ML IV ONE (12:27)
[2022-10-09 13:22] VITALS: O2SAT 95
[2022-10-09 13:39] VITALS: BP 127/66; PULSE 71
--- NOTE | 2022-10-10 09:28 | OP ---
SURGERY DATE/TIME: 10/09/2022 1227 PREOPERATIVE DIAGNOSIS: Dysphagia upper esophagus. POSTOPERATIVE DIAGNOSES: 1) Symptomatic mild narrowing and spasm proximal esophagus without evidence of any mass. 2) Very short segment early distal esophagitis. 3) Mild gastritis. 4) ASA Class II. PROCEDURES: 1) EGD with cold biopsy of antrum to evaluate for Helicobacter pylori. 2) Cold biopsy distal esophagus to evaluate for short segment distal esophagitis. 3) Cold biopsy mid esophagus to evaluate eosinophilic esophagitis. 4) Proximal esophageal dilatation with symptomatic narrowing (size 20 balloon dilator). SURGEON: Dr. Ant Mclean. ANESTHESIA: MAC. ESTIMATED BLOOD LOSS: Minimal. INDICATIONS: As noted above. Risks and benefits explained in detail and not limited to and consent was obtained. DESCRIPTION OF PROCEDURE AND FINDINGS: The patient is taken to the endoscopy room. MAC anesthesia introduced. After official time out and no disagreement with planned procedure. Bite block passed down the oropharynx. There was some proximal esophageal mild narrowing and spasm without evidence of any mass as she was having symptoms here. The scope could just pass through here. It was felt the patient would benefit from dilating this at the end of the procedure. The scope passed through the patent pylorus to the third portion of the duodenum. Third, second and first portions of duodenum were grossly unremarkable. Back in the stomach she had some mild gastric erythema. Whether some early mild gastritis versus normal variation. Cold biopsies taken to evaluate for Helicobacter pylori. Good hemostasis noted. The scope was then retroflexed. Gastroesophageal junction snug. No signs of any significant hiatal hernia. The scope is pulled back gastroesophageal junction 40 cm. There was a short segment of 1.5 mm to 2 mm or short segment distal esophagitis, mild esophagitis versus normal variation of gastroesophageal junction. Cold biopsy taken. Good hemostasis noted. Some random cold biopsies taken in the mid esophagus to evaluate for eosinophilic esophagitis. There were no signs of any obvious mass or obstructing lesion. The scope was then pulled back to proximal narrowed area. There is no lesion to biopsy but it was felt this warranted dilatation given her symptoms here. The scope is then passed back down the stomach. A 20 balloon catheter carefully advanced down and pulled up to proximal esophageal narrowing and carefully inflated first stage for 20 or 30 seconds, second stage for 30 seconds, final stage size 20 balloon dilator for 2 minutes. Balloon catheter is then decompressed and withdrawn. The scope much more easily passed through this area down in the stomach. The scope is withdrawn. There were no signs of any full thickness issues or injury secondary to biopsy or dilatation. Findings discussed with the family in the waiting area.
== END 2022-10-09 13:45 | disposition home or self-care (01) ==
LOC: SDC 10:21
PROVIDERS: ATTEND Surgery
DX: K22.2 Esophageal obstruction (principal); K29.70 Gastritis, unspecified, without bleeding; R13.10 Dysphagia, unspecified; E11.9 Type 2 diabetes mellitus without complications; Z80.3 Family history of malignant neoplasm of breast; Z80.1 Family history of malignant neoplasm of trachea, bronchus and lung; K20.90 Esophagitis, unspecified without bleeding
CPT/HCPCS: 82947; C1726; J2250; J2704